=== PATIENT | female | born 1990 | race Caucasian/White ===

== ENCOUNTER 2020-02-02 03:24 | Inpatient (IN) | payer MEDICAID ==
[2020-02-02] MEDS ORDERED: OXYTOCIN 10 UNIT/ML VIAL ONE (03:47)
[2020-02-02] MEDS ORDERED: MISOPROSTOL 0.2 MG TABLET ONE (03:48)
[2020-02-02] MEDS ORDERED: PENICILLIN G-K 5 MILLION UNIT VIAL ONE ×2 (03:48→08:41)
[2020-02-02] MEDS ORDERED: OXYTOCIN/NORMAL SALINE 20 UNIT/1,000 ML RTUINJ ONE (03:48)
[2020-02-02] MEDS ORDERED: LIDOCAINE 1% INJ-PF (10 MG/ML) 30 ML SDV ONE (03:48)
[2020-02-02] MEDS ORDERED: PENICILLIN G POTASSIUM 5,000,000 UNIT in DEXTROSE 5%-WATER 100 ML IV ONE (04:01)
[2020-02-02] MEDS ORDERED: RINGERS SOLUTION,LACTATED 1,000 ML IV PRN (04:01)
[2020-02-02] MEDS ORDERED: RINGERS SOLUTION,LACTATED 1,000 ML IV ONE (04:01)
[2020-02-02 04:20] LABS: APPEARANCE,URINE CLEAR; BILIRUBIN,URINE NEGATIVE (NEGATIVE); COLOR,URINE YELLOW; GLUCOSE, URINE NEGATIVE (NEGATIVE); KETONES,URINE NEGATIVE (NEGATIVE); LEUKOCYTE ESTERASE,URINE NEGATIVE (NEGATIVE); NITRITE,URINE NEGATIVE (NEGATIVE); PROTEIN,URINE 30 mg/dL (NEGATIVE); URINE SPECIFIC GRAVITY 1.013; UROBILINOGEN,URINE NEGATIVE mg/dL (<2.0)
[2020-02-02 04:31] LABS: ABSOLUTE BASOPHILS # (AUTO) 0.1 10^3/uL (0.0-0.2); ABSOLUTE EOSINOPHILS # (AUTO) 0.1 10^3/uL (0.0-0.6); ABSOLUTE LYMPHOCYTES (AUTO) 2.9 10^3/uL (0.5-4.7); ABSOLUTE MONOCYTES (AUTO) 0.5 10^3/uL (0.1-1.4); ABSOLUTE NEUT (AUTO) 6.2 10^3/uL (1.7-8.2); BASOPHILS % (AUTO) 0.6 % (0-2); EOSINOPHILS % (AUTO) 0.7 % (0-6); HEMATOCRIT 35.6 % (36.0-47.0); HEMOGLOBIN 12.8 g/dL (12.0-15.5); LYMPHOCYTES % (AUTO) 29.5 % (13-45); MEAN CORPUSCULAR HEMOGLOBIN 33.7 pg (27.0-33.4); MEAN CORPUSCULAR HGB CONC 35.8 g/dL (32.0-36.0); MEAN CORPUSCULAR VOLUME 94 fl (80-97); MONOCYTES % (AUTO) 4.9 % (3-13); PLATELET COUNT 143 10^3/uL (150-450); RED BLOOD COUNT 3.79 10^6/uL (3.72-5.28); RED CELL DISTRIBUTION WIDTH 13.8 % (11.5-14.0); SEGMENTED NEUTROPHILS % (AUTO) 64.3 % (42-78); TOTAL CELLS COUNTED % (AUTO) 100 %; WHITE BLOOD COUNT 9.7 10^3/uL (4.0-10.5)
[2020-02-02 04:46] LABS: URINE AMPHETAMINES SCREEN NEGATIVE; URINE BARBITURATES SCREEN NEGATIVE; URINE BENZODIAZEPINES SCREEN NEGATIVE; URINE COCAINE SCREEN NEGATIVE; URINE MARIJUANA (THC) SCREEN NEGATIVE; URINE METHADONE SCREEN NEGATIVE; URINE PHENCYCLIDINE SCREEN NEGATIVE
[2020-02-02] MEDS ORDERED: FENTANYL CITRATE INJ/PF 100 MCG/2 ML AMPUL ONE (05:32)
[2020-02-02] MEDS ORDERED: FENTANYL/BUPIVACAINE/NS/PF 300 MCG/150 ML RTUINJ EPI ONE (05:33)
[2020-02-02] MEDS ORDERED: EPHEDRINE SULFATE INJ 50 MG/1 ML AMPULE ONE (05:33)
[2020-02-02] MEDS ORDERED: BUPIVACAINE HCL 0.25 % INJ/PF (2.5 MG/1 ML) 30 ML VIAL ONE (05:33)
--- NOTE | 2020-02-02 07:08 | Admission Physical ---
Datetime Report Generated by CPN: 02/02/2020 07:07 CURRENT ADMISSION Chief Complaint: Uterine Contractions; Suspected Ruptured Membranes Indication for Induction: Not Applicable Admit Impression : Term, Intrauterine ; Active Labor; Ruptured Membranes Admit Plan: Admit to Unit; Initiate Labor Augmentation Protocol ALLERGIES Medication Allergies: No Medication Allergies: No Known Allergies (02/02/2020) Latex: No Latex Allergies Food Allergies: no Environmental Allergies: no OBSTETRICAL HISTORY EDC: 02/06/2020 00:00 : 1 Para: 0 Term: 0 : 0 SAB: 0 IAB: 0 Ectopic: 0 Livin Cesareans: 0 VBACs: 0 Multiple Births: 0 Gestational Diabetes: No Rh Sensitization: No Incompetent Cervix: No EMMY: No Infertility: No ART Treatment: No Uterine Anomaly: No IUGR: No Hx Previous C/S: No Macrosomia: No Hx Loss/Stillborn: No PIH: No Hx : No Placenta Previa/Abruption: No Depression/PP Depression: No PTL/PROM: No Post Hemorrhage: No Current Procedures: Ultrasound SEE RECORDS Alcohol: No Marijuana : No Cocaine: No Other Illicit Drugs: No Cigarettes: Never Smoker. 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) INFECTIOUS HISTORY Gonorrhea: No Genital Herpes: No Chlamydia: No Tuberculosis: No Syphilis: No Hepatitis: No HIV/AIDS Exposure: No Rash or Viral Illness: No HPV: Yes PHYSICAL EXAM General: Normal HEENT: Normal Neurologic: Normal Thyroid: Normal Heart: Normal Lungs: Normal Breast: Normal Back: Normal Abdomen: Normal Genitourinary Exam: Normal Extremities: Normal DTRs: Normal Pelvic Type: Adequate Vital Signs: Reviewed; Within Normal Limits VAGINAL EXAM Dilatation: 4 Effacement: 90 Station: -1 MEMBRANES Pooling: Positive Membranes: Ruptured Amniotic Fluid Color: Clear FETUS A EGA: 39.3 Monitoring: External US FHR- Baseline: 120 Variability: Moderate 6-25bpm Accelerations: 15X15 Decelerations: None FHR Category: Category I Estimated Weight (gm): 3600 Presentation: Vertex PLANS FOR LABOR AND DELIVERY Labor and Delivery: None Pain Management: Natural Feeding Preference: Both Benefit of Breast Feed Discussed: Yes Circumcision: N/A INFORMED CONSENT Signature: with User ID: Honey
[2020-02-02] MEDS: PENICILLIN G POTASSIUM 2,500,000 UNIT in DEXTROSE 5%-WATER 50 ML IV SCH ×2 (08:54→13:07)
[2020-02-02] MEDS ORDERED: OXYTOCIN/NORMAL SALINE 20 UNIT/1,000 ML RTUINJ IV PRN ×2 (12:54→15:16)
[2020-02-02] MEDS ORDERED: MAGNESIUM HYDROXIDE SUSP 30 ML UDCUP PO PRN (15:16)
[2020-02-02] MEDS ORDERED: DIPHENHYDRAMINE HCL 25 MG CAPSULE PO PRN (15:16)
[2020-02-02] MEDS ORDERED: MEASLES,MUMPS&RUBELLA VACC/PF 0.5 ML VIAL SUBCUT PRN (15:16)
[2020-02-02] MEDS ORDERED: DIPH/PERTUSS(ACELL)/TETANUS VAC/PF 0.5 ML SYR (>=10YO) IM PRN (15:16)
[2020-02-02] MEDS ORDERED: PROMETHAZINE HCL 25 MG SUPP.RECT PR PRN (15:16)
[2020-02-02] MEDS ORDERED: DIBUCAINE 1% OINTMENT 28 GM TP PRN (15:16)
[2020-02-02] MEDS ORDERED: PSEUDOEPHEDRINE HCL 30 MG TABLET PO PRN (15:16)
[2020-02-02] MEDS ORDERED: PROMETHAZINE HCL 25 MG TABLET PO PRN (15:16)
[2020-02-02] MEDS ORDERED: BENZOCAINE/MENTHOL AEROSOL SPRAY 56 ML TOP PRN (15:16)
[2020-02-02] MEDS ORDERED: ACETAMINOPHEN WITH CODEINE #3 TABLET PO PRN ×2 (15:16)
[2020-02-02] MEDS ORDERED: ZOLPIDEM TARTRATE 5 MG TABLET PO PRN (15:16)
[2020-02-02] MEDS ORDERED: PROMETHAZINE HCL INJ 25 MG/1 ML VIAL IV PRN (15:16)
[2020-02-02] MEDS ORDERED: ACETAMINOPHEN 650 MG SUPP.RECT PR PRN (15:16)
[2020-02-02] MEDS ORDERED: GLYCERIN/WITCH HAZEL LEAF 1 EACH MED..WIPE TP PRN (15:16)
[2020-02-02] MEDS ORDERED: NA PHOS,M-B/NA PHOS,DI-BA (ADULT) 133 ML ENEMA PR PRN (15:16)
[2020-02-02] MEDS: IBUPROFEN 800 MG TABLET PO SCH (22:37)
[2020-02-02] MEDS: FAMOTIDINE 20 MG TABLET PO SCH (22:38)
[2020-02-03] MEDS: IBUPROFEN 800 MG TABLET PO SCH ×4 (05:31→21:49)
[2020-02-03 06:45] LABS: HEMOGLOBIN 10.3 g/dL (12.0-15.5); MEAN CORPUSCULAR HEMOGLOBIN 33.6 pg (27.0-33.4); MEAN CORPUSCULAR HGB CONC 35.5 g/dL (32.0-36.0); MEAN CORPUSCULAR VOLUME 95 fl (80-97); PLATELET COUNT 122 10^3/uL (150-450); RED BLOOD COUNT 3.07 10^6/uL (3.72-5.28); WHITE BLOOD COUNT 10.9 10^3/uL (4.0-10.5)
[2020-02-03] MEDS: FERROUS SULFATE 325 MG TABLET PO SCH ×3 (08:33→17:48)
[2020-02-03] MEDS: DOCUSATE SODIUM 100 MG CAPSULE PO SCH ×3 (08:33→17:48)
[2020-02-03] MEDS: PRENATAL VITAMIN W DHA CAPSULE PO SCH (09:58)
[2020-02-03] MEDS: FAMOTIDINE 20 MG TABLET PO SCH ×2 (09:58→21:51)
[2020-02-03] MEDS: SENNOSIDES/DOCUSATE 8.6-50 MG 1 EACH TABLET PO SCH (09:58)
[2020-02-03] MEDS ORDERED: FERRIC CARBOXYMALTOSE INJ 750 MG/15 ML VIAL IV ONE (10:38)
--- NOTE | 2020-02-03 11:28 | PDOC PROGRESS REPORT ---
Subjective-OB Progress Note for:: 02/03/20 Subjective: 29yo G1 now P1 s/p c/s ppd 1. Pt is ambulating, voiding and without difficulty. Denies any concerns Physical Exam (OB) Vital Signs: Temp Pulse Resp BP Pulse Ox 97.7 F 85 18 117/61 99 02/03/20 07:58 02/03/20 07:58 02/03/20 07:58 02/03/20 07:58 02/03/20 07:58 Intake & Output 02/02/20 02/03/20 02/04/20 06:59 06:59 06:59 Intake Total 480 Output Total 270 Balance -270 480 Weight 99.1 kg - General General Appearance: Appears well In distress: None - PIH/Pre-Eclampsia Headache: Absent Epigastric Pain: No Visual Changes: No - Episiotomy/Laceration Site Condition: N/A - Lochia Lochia Amount: Scant < 10 ml Lochia Color: Rubra/Red - Abdomen Description: Soft Hernia Present: No Fundal Description: Firm, Midline Fundal Height: u/u - u/2 - Respiratory Respiratory Status: No respiratory distress - Extremities Upper extremity: Normal inspection Lower extremities: Normal inspection - Neurological Cognition: Normal Orientation: AAOx4 - Psychological Associated symptoms: Normal affect, Normal mood Objective-Diagnostic Laboratory: 02/03/20 06:24 02/03/20 06:24 WBC 10.9 H RBC 3.07 L Hgb 10.3 L D Hct 29.0 L MCV 95 MCH 33.6 H MCHC 35.5 RDW 14.0 Plt Count 122 L Assessment and Plan(PN) - Assessment and Plan (1) Vaginal delivery Is this a current diagnosis for this admission?: Yes Plan: routine pp care (2) Acute blood loss anemia Is this a current diagnosis for this admission?: Yes Plan: increase dietary iron and feso4 bid (3) History of intravenous drug use in remission Is this a current diagnosis for this admission?: Yes Plan: discharge planning consult placed, mother has been great support during and remains at bedside (4) Spontaneous onset of labor Is this a current diagnosis for this admission?: Yes Plan: delivered - Time Spent with Patient Time with patient: Less than 15 minutes Medications reviewed and adjusted accordingly: Yes - Disposition Anticipated Discharge: Home Within: within 24 hours
[2020-02-03] MEDS ORDERED: FERRIC CARBOXYMALTOSE 750 MG in NORMAL SALINE 250 ML IV ONE (11:30)
[2020-02-04] MEDS: IBUPROFEN 800 MG TABLET PO SCH ×2 (05:07→13:29)
[2020-02-04] MEDS: DOCUSATE SODIUM 100 MG CAPSULE PO SCH ×2 (10:11→19:47)
[2020-02-04] MEDS: FAMOTIDINE 20 MG TABLET PO SCH (10:11)
[2020-02-04] MEDS: FERROUS SULFATE 325 MG TABLET PO SCH ×2 (10:11→19:47)
[2020-02-04] MEDS: PRENATAL VITAMIN W DHA CAPSULE PO SCH (10:11)
[2020-02-04] MEDS: SENNOSIDES/DOCUSATE 8.6-50 MG 1 EACH TABLET PO SCH (10:11)
[2020-02-04 13:31] VITALS: BP 117/61
--- NOTE | 2020-02-04 13:40 | PDOC DISCHARGE SUMMARY ---
Impression - Admit/DC Date/PCP Admission Date/Primary Care Provider: 02/02/20 03:32 PHILIP JOEL MD Discharge Date: 02/04/20 - Discharge Diagnosis (1) Vaginal delivery Is this a current diagnosis for this admission?: Yes (2) Acute blood loss anemia Is this a current diagnosis for this admission?: Yes (3) History of intravenous drug use in remission Is this a current diagnosis for this admission?: Yes (4) Spontaneous onset of labor Is this a current diagnosis for this admission?: Yes - Assessment Summary: G1 now P1 s/p ppd1, stable and ready for discharge. F/u at office for appt or earlier prn. Reviewed warning s/s. Pt verbalized understanding. Discussed re-starting meds for anxiety/depression with therapist yesterday, was given information to local therapist. - Additional Information Resuscitation Status: Full Code Discharge Diet: As Tolerated, Regular Discharge Activity: Activity As Tolerated, Balance Activity w/Rest, No Lifting Over 10 Pounds, Pelvic Rest, No tub bath, Walk Frequently Referrals: PHILIP JOEL MD [Primary Care Provider] - Prescriptions: Ibuprofen [Motrin 800 mg Tablet] 800 mg PO Q8HP PRN #20 tablet PRN Reason: Abdominal Cramping Docusate Sodium [Colace 100 mg Capsule] 100 mg PO BID #60 capsule Ferrous Sulfate [Feosol 325 mg Tablet] 325 mg PO BID #60 tablet Home Medications: Docusate Sodium [Colace 100 mg Capsule] 100 mg PO BID #60 capsule 02/03/20 Ferrous Sulfate [Feosol 325 mg Tablet] 325 mg PO BID #60 tablet 02/03/20 Ibuprofen [Motrin 800 mg Tablet] 800 mg PO Q8HP PRN #20 tablet 02/03/20 Vit/Dha [ Multi + Dha Capsule] 1 cap PO DAILY capsule 02/03/20 Results Laboratory Results: WBC 10.9 10^3/uL (4.0-10.5) H 02/03/20 06:24 RBC 3.07 10^6/uL (3.72-5.28) L 02/03/20 06:24 Hgb 10.3 g/dL (12.0-15.5) L D 02/03/20 06:24 Hct 29.0 % (36.0-47.0) L 02/03/20 06:24 MCV 95 fl (80-97) 02/03/20 06:24 MCH 33.6 pg (27.0-33.4) H 02/03/20 06:24 MCHC 35.5 g/dL (32.0-36.0) 02/03/20 06:24 RDW 14.0 % (11.5-14.0) 02/03/20 06:24 Plt Count 122 10^3/uL (150-450) L 02/03/20 06:24 Lymph % (Auto) 29.5 % (13-45) 02/02/20 04:17 [place] % (Auto) 4.9 % (3-13) 02/02/20 04:17 Eos % (Auto) 0.7 % (0-6) 02/02/20 04:17 Baso % (Auto) 0.6 % (0-2) 02/02/20 04:17 Absolute Neuts (auto) 6.2 10^3/uL (1.7-8.2) 02/02/20 04:17 Absolute Lymphs (auto) 2.9 10^3/uL (0.5-4.7) 02/02/20 04:17 Absolute Monos (auto) 0.5 10^3/uL (0.1-1.4) 02/02/20 04:17 Absolute Eos (auto) 0.1 10^3/uL (0.0-0.6) 02/02/20 04:17 Absolute Basos (auto) 0.1 10^3/uL (0.0-0.2) 02/02/20 04:17 Seg Neutrophils % 64.3 % (42-78) 02/02/20 04:17 Urine Color YELLOW 02/02/20 03:30 Urine Appearance CLEAR 02/02/20 03:30 Urine pH 6.0 (5.0-9.0) 02/02/20 03:30 Ur Specific [place] 1.013 02/02/20 03:30 Urine Protein 30 mg/dL (NEGATIVE) H 02/02/20 03:30 Urine Glucose (UA) NEGATIVE mg/dL (NEGATIVE) 02/02/20 03:30 Urine Ketones NEGATIVE mg/dL (NEGATIVE) 02/02/20 03:30 Urine Blood LARGE (NEGATIVE) H 02/02/20 03:30 Urine Nitrite NEGATIVE (NEGATIVE) 02/02/20 03:30 Urine Bilirubin NEGATIVE (NEGATIVE) 02/02/20 03:30 Urine Urobilinogen NEGATIVE mg/dL (<2.0) 02/02/20 03:30 Ur Leukocyte Esterase NEGATIVE (NEGATIVE) 02/02/20 03:30 Urine Ascorbic Acid NEGATIVE (NEGATIVE) 02/02/20 03:30 Urine Opiates Screen NEGATIVE 02/02/20 03:30 Urine Methadone Screen NEGATIVE 02/02/20 03:30 Ur Barbiturates Screen NEGATIVE 02/02/20 03:30 Ur Phencyclidine Scrn NEGATIVE 02/02/20 03:30 Ur Amphetamines Screen NEGATIVE 02/02/20 03:30 U Benzodiazepines Scrn NEGATIVE 02/02/20 03:30 Urine Cocaine Screen NEGATIVE 02/02/20 03:30 U Marijuana (THC) Screen NEGATIVE 02/02/20 03:30 RPR NONREACTIVE (NONREACTIVE) 02/02/20 04:17 Blood Type A POSITIVE 02/02/20 04:17 Antibody Screen NEGATIVE 02/02/20 04:17
--- NOTE | 2020-02-05 12:00 | Delivery Summary ---
Del Sum A-C Datetime Report Generated by CPN: 02/05/2020 12:00 DELIVERY PERSONNEL DELIVERY PERSONNEL: [id number] Delivery Doctor:: Zoila Chapman MD Labor and Delivery Nurse:: Samantha Vega RN Labor and Delivery Nurse:: RONAL Tejeda Nursery Nurse:: Audra Callahan RN- AFTER DELIVERY Peg Driver/DEVELOPMENTAL SERVICES WORKER: Paulina Velazquez CNA II MATERNAL INFORMATION Delivery Anesthesia: Epidural Medications After Delivery: Pitocin Bolus-Please Comment; Pitocin Drip 20 Units/1000ml NSS Estimated Blood Loss (ml): 350 Maternal Complications: None Provider Comments: Pushed with patient once complete/complete and +2 She delivered in AGNES and after the head, the shoulders and rest of the body followed easily. Baby vigorous at delivery so cord clamping delayed 30 seconds. Cord clamped, cut and placed on maternal chest. Oral suctioning during cord delay. Both mother and infant stable. Lacerations repaired as above. Fundus firm LABOR SUMMARY EDC: 02/06/2020 00:00 No. Babies in Womb: 1 Attempted: No Labor Anesthesia: Epidural LABOR INFORMATION Reason for Induction: Not Applicable Onset of Labor: 02/02/2020 03:40 Complete Dilatation: 02/02/2020 14:18 Oxytocin: N/A Group B Beta Strep: Positive Antibiotics # of Doses: 3 Antibiotics Time of Last Dose: 130 Name of Antibiotic Given: PENICILLIN G Steroids Given: None Reason Steroids Not Administered: Not Applicable MEMBRANES Membranes Rupture Method: Spontaneous Membranes Rupture Method: Spontaneous Rupture of Membranes: 02/02/2020 03:00 Length of Rupture (hr): 11.97 Amniotic Fluid Color: Clear Amniotic Fluid Color: Clear Amniotic Fluid Amount: Moderate Amniotic Fluid Amount: Moderate Amniotic Fluid Odor: Normal STAGES OF LABOR Stage 1 hr: 10 Stage 1 min: 38 Stage 2 hr: 0 Stage 2 min: 40 Stage 3 hr: 0 Stage 3 min: 5 Total Time in Labor hr: 11 Total Time in Labor min: 23 VAGINAL DELIVERY Laceration #1: Vaginal Laceration Extension #1: Second Degree Laceration Extension #2: First Degree Other Laceration: #1 laceration Right mediolateral and # 2 right labial Laceration Repair: Yes Laceration Repair Note: Repaired with 2-0 chromic in a running fashion Sponge Count Correct: N/A Sharps Count Correct: N/A BABY A INFORMATION Infant Delivery Date/Time: 02/02/2020 14:58 Method of Delivery: Vaginal Method of Delivery: Vaginal Nurse Controlled Delivery: No Born in Route : No : N/A Forceps: N/A Vacuum Extraction: N/A Shoulder Dystocia : No PRESENTATION/POSITION BABY A Presentation: Cephalic Presentation: Cephalic Cephalic Presentation: Vertex Vertex Position: Left Occipital Anterior Breech Presentation: N/A PLACENTA INFORMATION BABY A Placenta Delivery Time : 02/02/2020 15:03 Placenta Method of Delivery: Spontaneous Placenta Status: Delivered SCORES BABY A Heart Rate 1 min: >100 bpm Resp Effort 1 min: Good Cry Reflex Irritability 1 min: Cough or Sneeze or Pulls Away Muscle Tone 1 min: Active Motion Color 1 min: Blue/Pale Resuscitation Effort 1 min: Tactile Stimulation SCORE 1 MIN: 8 Heart Rate 5 min: >100 bpm Resp Effort 5 min: Good Cry Reflex Irritability 5 min: Cough or Sneeze or Pulls Away Muscle Tone 5 min: Active Motion Color 5 min: Body [place], Extremities Blue Resuscitation Effort 5 min: Tactile Stimulation SCORE 5 MIN: 9 INFANT INFORMATION BABY A Gestational Age at Delivery: 39.3 Gestational Status: Full Term- 39- 40.6 Weeks Outcome : Liveborn Condition : Stable Sex: Female WEIGHT/LENGTH BABY A Birthweight (gm): 3742 Weight (lb): 8 Infant Weight (oz): 4 Length (in): 18.50 Infant Length (cm): 46.99 CORD INFORMATION BABY A No. Cord Vessels: 3 Nuchal Cord : N/A Cord Blood Taken: Yes-For Storage (Mom's Blood type +) Suction: None ASSESSMENT BABY A Complications: None Physical Findings at Delivery: Caput Succedaneum; Molding of the Head Respirations: Appears Normal Skin to Skin: Yes Transmission Supervisor/ALS Called : No Care By: EVELIA SANTOS RN Transferred To: Remains with Mother BABY B INFORMATION : N/A SIGNATURES Signature: with User ID: Elver : with User ID: [email or web address]
== END 2020-02-04 19:48 | disposition home or self-care (01) | DRG 806 ==
LOC: LC 03:24 → LR 03:32 → 2S 20:37 → UNDODISIN 02-04 17:01
PROVIDERS: ADMIT Obstetrics & Gynecology; ATTEND Obstetrics & Gynecology
PROC: 10E0XZZ Delivery of Products of Conception, External Approach (ICD-10-PCS; principal; 2020-02-02)
PROC: 0KQM0ZZ Repair Perineum Muscle, Open Approach (ICD-10-PCS; 2020-02-02)
PROC: 3E0234Z Introduction of Serum, Toxoid and Vaccine into Muscle, Percutaneous Approach (ICD-10-PCS; 2020-02-04)
DX: O99.344 Other mental disorders complicating childbirth (principal); D62 Acute posthemorrhagic anemia; Z37.0 Single live birth; O99.324 Drug use complicating childbirth; O99.824 Streptococcus B carrier state complicating childbirth; O99.02 Anemia complicating childbirth; F11.11 Opioid abuse, in remission; F41.9 Anxiety disorder, unspecified; Z3A.39 39 weeks gestation of pregnancy; Z23 Encounter for immunization
CPT/HCPCS: 36415; 80307; 81005; 85025; 85027; 86592; 86850; 86900; 86901; 90715; J1439; J2540; J2590; J3010; J3490; J7050; J7060